=== PATIENT | female | born 1985 | race Caucasian/White ===

== ENCOUNTER 2017-04-11 21:53 | Emergency (ER) | payer OTHER ==
[2017-04-11 22:30] VITALS: BP 123/64; PULSE 75; RESP 20; TEMP 98.9
[2017-04-11] MEDS ORDERED: DIPH,PERTUS(ACELL)TETVAC-LF 0.5 ML VIAL IM ONE (22:36)
--- NOTE | 2017-04-11 22:38 | ED ---
Fall HPI - General Chief Complaint: Fall Stated Complaint: Fall/Knee Time Seen by Provider: 04/11/17 22:32 Source: patient, RN notes reviewed Mode of arrival: ambulatory Limitations: no limitations - History of Present Illness Initial Comments: This a 31-year-old female presents emergency Department chief complaint fall. Patient complains of laceration to her left knee, left knee pain and right foot pain. She states that she tripped and twisted her foot and fell on the concrete her left knee. She is unsure when her last tetanus was. Patient denies head injury no LOC. - Related Data Home Medications Medication Instructions Recorded Confirmed Kac-[id number]-[id number] Acid 1 cap PO DAILY 01/17/16 02/26/16 [-U Capsule] Ranitidine HCl [Zantac] 150 mg PO HS 02/26/16 02/26/16 Previous Rx's Medication Instructions Recorded Docusate [Colace] 100 mg PO BID #60 capsule 02/27/16 Ibuprofen [Motrin] 600 mg PO Q6HR PRN #30 tab 02/27/16 Cephalexin [Keflex] 500 mg PO Q6HR #28 cap 04/11/17 Allergies Allergy/AdvReac Type Severity Reaction Status Date / Time dandelion (Taraxacum Allergy Unknown Verified 04/11/17 22:30 officinale) [dandelion] ofloxacin Allergy Unknown Verified 04/11/17 22:30 Review of Systems ROS Statement: Those systems with pertinent positive or pertinent negative responses have been documented in the HPI. ROS Other: All systems not noted in ROS Statement are negative. Past Medical History Past Medical History: Asthma Additional Past Medical History / Comment(s): Obstetric history: three vaginal deliveries; she has had care with Dr Caicedo since 9 weeks gestation. Oneg,abs neg, Rub Imm, RPR NR, Hep B neg. Quad neg.normal 1hr GTT, GBS neg. History of Any Multi-Drug Resistant Organisms: None Reported Past Surgical History: No Surgical Hx Reported Past Anesthesia/Blood Transfusion Reactions: No Reported Reaction Past Psychological History: No Psychological Hx Reported Smoking Status: Never smoker Past Alcohol Use History: None Reported Past Drug Use History: None Reported - Past Family History Father Family Medical History: Hypertension General Exam Limitations: no limitations General appearance: alert, in no apparent distress Head exam: Present: atraumatic, normocephalic, normal inspection Neck exam: Present: normal inspection, full ROM. Absent: tenderness, meningismus, lymphadenopathy Respiratory exam: Present: normal lung sounds bilaterally. Absent: respiratory distress, wheezes, rales, rhonchi, stridor Cardiovascular Exam: Present: regular rate, normal rhythm, normal heart sounds. Absent: systolic murmur, diastolic murmur, rubs, gallop, clicks Extremities exam: Present: other (Right foot there is tenderness to lateral aspect of the fifth metatarsal, no obvious bruising, deformity. Neurovascular intact, left knee there is a 3 cm laceration over the patella there is no tendon involvement patient has full range of motion.) Back exam: Present: full ROM. Absent: tenderness Neurological exam: Present: alert, oriented X3, CN II-XII intact Skin exam: Present: warm, dry, intact, normal color. Absent: rash Course Vital Signs 04/11/17 22:28 Temperature 98.9 F Pulse Rate 75 Respiratory 20 Rate Blood Pressure 123/64 O2 Sat by Pulse 99 Oximetry Procedures - Laceration Laceration #1 Consent Obtained: verbal consent Indication: laceration Site: lower extremity (Left knee) Size (cm): 3 Description: irregular Depth: simple, single layer Anesthetic Used: lidocaine 1%, without epi Anesthesia Technique: local infiltration Amount (mls): 5 Pre-repair: wound explored, irrigated extensively, deep structures intact, wound margins revised Type of Sutures: nylon Size of Sutures: 4-0 Number of Sutures: 4 Technique: simple, interrupted Patient Tolerated Procedure: well, no complications Medical Decision Making - Medical Decision Making 31-year-old male present emergency from for fall laceration, foot injury knee injury. X-rays show no acute fracture. The laceration was closed. Patient will be placed on antibiotics as this is a semi-deep wound over a joint. Return parameters were discussed. Wound care was discussed Disposition Clinical Impression: Fall, Laceration of left knee, Contusion, knee, Foot sprain Disposition: HOME SELF-CARE Condition: Stable Instructions: Care For Your Stitches (ED), Laceration (ED), Foot Sprain (ED) Additional Instructions: Return in 10 days for suture removal.Please return to the Emergency Department if symptoms worsen or any other concerns. Prescriptions: Cephalexin [Keflex] 500 mg PO Q6HR #28 cap Referrals: Chacho Da Silva DO [Primary Care Provider] - 1-2 days Time of Disposition: 23:08
--- NOTE | 2017-04-11 22:57 | XR ---
EXAMINATION TYPE: XR foot complete RT DATE OF EXAM: 04/11/2017 COMPARISON: NONE HISTORY: Foot pain TECHNIQUE: 3 views FINDINGS: I see no fracture nor dislocation. Metatarsals are intact. Joint spaces are fairly normal. There are no erosions. IMPRESSION: Negative right foot exam
--- NOTE | 2017-04-11 22:59 | XR ---
EXAMINATION TYPE: XR knee complete LT DATE OF EXAM: 04/11/2017 COMPARISON: NONE HISTORY: Pain TECHNIQUE: 3 views FINDINGS: I see no fracture nor dislocation. Joint spaces are normal. There is no sign of any joint e ffusion. IMPRESSION: Negative left knee exam
[2017-04-11] MEDS ORDERED: CEPHALEXIN 500MG STARTER PACK 4 CAP BTL PO STA (23:05)
[2017-04-11] MEDS ORDERED: IBUPROFEN 600 MG TAB PO STA (23:05)
== END 2017-04-11 23:25 | disposition home or self-care (01) ==
LOC: EC 21:53
DX: S81.012A Laceration without foreign body, left knee, initial encounter (principal); S93.601A Unspecified sprain of right foot, initial encounter; Z79.899 Other long term (current) drug therapy; Z88.8 Allergy status to other drugs, medicaments and biological substances; Z23 Encounter for immunization; W01.0XXA Fall on same level from slipping, tripping and stumbling without subsequent striking against object, initial encounter
CPT/HCPCS: 12002; 90471; 90715; 99283

== ENCOUNTER 2019-07-15 15:39 | Emergency (ER) | payer OTHER ==
[2019-07-15] MEDS ORDERED: ACETAMINOPHEN TAB 500 MG TAB PO STA (16:14)
[2019-07-15] MEDS ORDERED: KETOROLAC 30 MG/ML 1 ML VIAL IVP STA (16:15)
[2019-07-15] MEDS ORDERED: SODIUM CHLORIDE 0.9% 1,000 ML IV SCH (16:15)
[2019-07-15] MEDS ORDERED: SODIUM CHLORIDE 0.9% 1,000 ML IV ONE (16:15)
[2019-07-15] MEDS ORDERED: ONDANSETRON 4 MG/2 ML VIAL IVP STA (16:15)
--- NOTE | 2019-07-15 16:40 | ED ---
URI HPI - General Chief Complaint: Upper Respiratory Infection Stated Complaint: ENT,Cough,Headache Time Seen by Provider: 07/15/19 15:50 Source: patient, RN notes reviewed, old records reviewed Mode of arrival: ambulatory Limitations: no limitations - History of Present Illness Initial Comments: Sisi is a 33-year-old female presents with cough fever or chills. She complains of nausea and vomiting and body aches for the past 5 days. Patient has not had recent Motrin Tylenol to stay. She remains of fever or chills at this time. Patient has had no history of sick contacts she is aware of. He reports that when she does cough she has a worsening headache. Patient states that she's not had her flu vaccine. - Related Data Home Medications Medication Instructions Recorded Confirmed DULoxetine HCL [Cymbalta] 60 mg PO HS 08/13/17 08/13/17 Previous Rx's Medication Instructions Recorded Acetaminophen with Codeine 1 tab PO Q4H #6 tab 08/13/17 [Tylenol w/codeine #3] Ondansetron Odt [Zofran Odt] 4 mg PO Q8HR PRN #12 tab 07/15/19 Allergies Allergy/AdvReac Type Severity Reaction Status Date / Time dandelion (Taraxacum Allergy Unknown Verified 08/13/17 19:32 officinale) [dandelion] ofloxacin Allergy Swelling Verified 08/13/17 19:32 Review of Systems ROS Statement: Those systems with pertinent positive or pertinent negative responses have been documented in the HPI. ROS Other: All systems not noted in ROS Statement are negative. Past Medical History Past Medical History: Asthma Additional Past Medical History / Comment(s): Obstetric history: three vaginal deliveries; she has had care with Dr Caicedo since 9 weeks gestation. Oneg,abs neg, Rub Imm, RPR NR, Hep B neg. Quad neg.normal 1hr GTT, GBS neg. History of Any Multi-Drug Resistant Organisms: None Reported Past Surgical History: No Surgical Hx Reported Past Anesthesia/Blood Transfusion Reactions: No Reported Reaction Past Psychological History: No Psychological Hx Reported Smoking Status: Never smoker Past Alcohol Use History: Rare Past Drug Use History: None Reported - Past Family History Father Family Medical History: Hypertension General Exam - General Exam Comments Initial Comments: 33-year-old female. Alert and oriented 3. Limitations: no limitations General appearance: alert, in no apparent distress Head exam: Present: atraumatic, normocephalic, normal inspection Eye exam: Present: normal appearance, PERRL, EOMI. Absent: scleral icterus, conjunctival injection, periorbital swelling ENT exam: Present: normal exam, mucous membranes moist Neck exam: Present: normal inspection. Absent: tenderness, meningismus, lymphadenopathy Respiratory exam: Present: normal lung sounds bilaterally. Absent: respiratory distress, wheezes, rales, rhonchi, stridor Cardiovascular Exam: Present: regular rate, normal rhythm, normal heart sounds. Absent: systolic murmur, diastolic murmur, rubs, gallop, clicks GI/Abdominal exam: Present: soft, normal bowel sounds. Absent: distended, tenderness, guarding, rebound, rigid Extremities exam: Present: normal inspection, full ROM, normal capillary refill. Absent: tenderness, pedal edema, joint swelling, calf tenderness Back exam: Present: normal inspection Neurological exam: Present: alert, oriented X3, CN II-XII intact Psychiatric exam: Present: normal affect, normal mood Skin exam: Present: warm, dry, intact, normal color. Absent: rash Course Vital Signs 07/15/19 15:47 Temperature 98.9 F Pulse Rate 101 H Respiratory 20 Rate Blood Pressure 107/77 O2 Sat by Pulse 99 Oximetry Medical Decision Making - Medical Decision Making 33-year-old female presents today for evaluation for concerns for cough congestion fever chills body aches. Symptoms for 5 days. She states she's been having some nausea vomiting. IV established. Blood work obtained. Unremarkable. Patient is positive for flu B. Patient was appears no distress and is resting comfortably bed after Zofran and Toradol. Discussed symptomatically treatment at this time and to monitor for a PCP follow up. - Lab Data Result diagrams: 07/15/19 16:25 07/15/19 16:25 Lab Results 07/15/19 07/15/19 07/15/19 Range/Units 15:55 16:25 16:25 WBC 5.8 (3.8-10.6) k/uL RBC 4.68 (3.80-5.40) m/uL Hgb 13.7 (11.4-16.0) gm/dL Hct 41.5 (34.0-46.0) % MCV 88.7 (80.0-100.0) fL MCH 29.2 (25.0-35.0) pg MCHC 33.0 (31.0-37.0) g/dL RDW 12.9 (11.5-15.5) % Plt Count 153 (150-450) k/uL Neutrophils % 75 % Lymphocytes % 18 % Monocytes % 5 % Eosinophils % 0 % Basophils % 0 % Neutrophils # 4.4 (1.3-7.7) k/uL Lymphocytes # 1.1 (1.0-4.8) k/uL Monocytes # 0.3 (0-1.0) k/uL Eosinophils # 0.0 (0-0.7) k/uL Basophils # 0.0 (0-0.2) k/uL Sodium 137 (137-145) mmol/L Potassium 3.4 L (3.5-5.1) mmol/L Chloride 100 (98-107) mmol/L Carbon Dioxide 28 (22-30) mmol/L Anion Gap 9 mmol/L BUN 8 (7-17) mg/dL Creatinine 0.64 (0.52-1.04) mg/dL Est GFR (CKD-EPI)AfAm >90 (>60 ml/min/1.73 sqM) Est GFR (CKD-EPI)NonAf >90 (>60 ml/min/1.73 sqM) Glucose 107 H (74-99) mg/dL Calcium 9.2 (8.4-10.2) mg/dL Influenza Type A RNA Not Detected (Not Detectd) Influenza Type B (PCR) Detected H (Not Detectd) Disposition Clinical Impression: Influenza B Disposition: HOME SELF-CARE Condition: Good Instructions (If sedation given, give patient instructions): Influenza (ED), Upper Respiratory Infection (ED) Additional Instructions: Today Motrin and Tylenol as discussed. Have close follow-up with your primary care physician. Return to emergency department if any alarming signs or symptoms occur. Prescriptions: Ondansetron Odt [Zofran Odt] 4 mg PO Q8HR PRN #12 tab PRN Reason: Nausea Is patient prescribed a controlled substance at d/c from ED?: No Referrals: Chacho Da Silva DO [Primary Care Provider] - 1-2 days Time of Disposition: 17:31
[2019-07-15 16:53] LABS: Basophils % (A) 0 %; Eosinophils % (A) 0 %; HCT 41.5 % (34.0-46.0); HGB 13.7 gm/dL (11.4-16.0); Lymphocytes # (A) 1.1 k/uL (1.0-4.8); Lymphocytes % (A) 18 %; MCH 29.2 pg (25.0-35.0); MCV 88.7 fL (80.0-100.0); Mean Platelet Volume 7.8; Monocytes # (A) 0.3 k/uL (0-1.0); Monocytes % (A) 5 %; Neutrophils # (A) 4.4 k/uL (1.3-7.7); Neutrophils % (A) 75 %; Platelet Count 153 k/uL (150-450); RBC 4.68 m/uL (3.80-5.40); RDW 12.9 % (11.5-15.5); WBC 5.8 k/uL (3.8-10.6)
[2019-07-15 16:59] LABS: African American GFR (CKD) >90 (>60 ml/min/1.73 sqM); Anion Gap 9 mmol/L; Blood Urea Nitrogen 8 mg/dL (7-17); Calcium 9.2 mg/dL (8.4-10.2); Carbon Dioxide 28 mmol/L (22-30); Chloride 100 mmol/L (98-107); Glucose 107 mg/dL (74-99); Non-African American GFR(CKD) >90 (>60 ml/min/1.73 sqM); Potassium 3.4 mmol/L (3.5-5.1); Sodium 137 mmol/L (137-145)
[2019-07-15 18:03] VITALS: BP 107/70; PULSE 93; RESP 18; TEMP 98.5
== END 2019-07-15 18:02 | disposition home or self-care (01) ==
LOC: EC 15:39
DX: J10.1 Influenza due to other identified influenza virus with other respiratory manifestations (principal); Z88.1 Allergy status to other antibiotic agents; Z91.048 Other nonmedicinal substance allergy status; Z79.899 Other long term (current) drug therapy
CPT/HCPCS: 36415; 80048; 85025; 87502; 99284; 96374; 96375; 96361; J2405; J1885

== ENCOUNTER 2022-12-08 05:30 | Observation (INO) | payer OTHER ==
--- NOTE | 2022-12-07 06:45 | P.HPOB ---
History of Present Illness H&P Date: 12/07/22 Chief Complaint: 14 week demise This patient is a pleasant 37-year-old 5 para 4 female estimated date of confinement 06/04/2023 estimated gestational age 14 weeks who presents to labor and delivery for Hemabate induction of labor secondary to demise. Agata child's history is such that she presented for care and 9 weeks. At that time she had a visible heartbeat. She re-presented at 13 weeks and at that time we were unable to find heart tones. Ultrasound showed a intrauterine demise with evidence of hydrops and possible ascites. Due to the gestational age have recommended laminaria placement and Hemabate induction of labor. Review of Systems Constitutional: Reports as per HPI Genitourinary: Reports as per HPI, Reports Menstruation: Reports amenorrhea Past Medical History Past Medical History: Asthma Additional Past Medical History / Comment(s): Patient's had 4 term vaginal deliveries History of Any Multi-Drug Resistant Organisms: None Reported Past Surgical History: No Surgical Hx Reported Past Anesthesia/Blood Transfusion Reactions: No Reported Reaction Past Psychological History: No Psychological Hx Reported Smoking Status: Never smoker Past Alcohol Use History: None Reported, Rare Past Drug Use History: None Reported - Past Family History Father Family Medical History: Hypertension Medications and Allergies Home Medications Medication Instructions Recorded Confirmed Type Acetaminophen with Codeine 1 tab PO Q4H #6 tab 08/13/17 Rx [Tylenol w/codeine #3] DULoxetine HCL [Cymbalta] 60 mg PO HS 08/13/17 08/13/17 History Ondansetron Odt [Zofran Odt] 4 mg PO Q8HR PRN #12 tab 07/15/19 Rx Allergies Allergy/AdvReac Type Severity Reaction Status Date / Time dandelion (Taraxacum Allergy Unknown Verified 08/13/17 19:32 officinale) [dandelion] ofloxacin Allergy Swelling Verified 08/13/17 19:32 Exam - OBG Physical Exam Abdomen: bowel sounds normal, no diffuse tenderness, no bruit present, no guarding noted, no hepatomegaly, no splenomegaly, no mass Vulva: both: normal Vagina: normal moisture, no discharge Cervix: no lesion, no discharge Uterus: enlarged, normal contour Results Ultrasound shows a nonviable measuring 12 weeks size with hydrops labs show she is O negative, rubella immune, RPR is nonreactive, HIV is nonreactive, hepatitis B and C negative Assessment and Plan Assessment: This is a pleasant 37-year-old 5 para 4 female estimated gestational age by dates 14 weeks with known demise. Plan is Hemabate induction of labor. I've had a long discussion with the patient about this process and the benefits and risks. She understands the risks of retained products requiring D&C and/or hemorrhage. All the patient's questions are answered and she wishes to proceed. (1) 14 weeks gestation of Status: Acute Code(s): Z3A.14 - 14 WEEKS GESTATION OF SNOMED Code(s): 40146631 (2) demise Status: Acute Code(s): VYI1887 - SNOMED Code(s): 224812172 (3) Rh negative status during Status: Acute Code(s): O26.899 - OTH RELATED CONDITIONS, UNSPECIFIED TRIMESTER; Z67.91 - UNSPECIFIED BLOOD TYPE, RH NEGATIVE SNOMED Code(s): 493357171
[2022-12-08] MEDS ORDERED: BUTORPHANOL 2 MG/ML 1 ML VIAL IV PRN (05:42)
[2022-12-08 05:49] VITALS: RESP 16
[2022-12-08] MEDS: CARBOPROST TROMETHAMINE 250 MCG/ML 1 ML AMP IM SCH ×7 (06:07→16:04)
[2022-12-08] MEDS: LACTATED RINGERS 1,000 ML IV SCH ×2 (06:10→11:57)
[2022-12-08] MEDS: ONDANSETRON 4 MG/2 ML VIAL IVP PRN ×2 (06:16→11:26)
[2022-12-08] MEDS: DIPHENOX-ATROP 2.5-0.025 MG 1 EACH TAB PO PRN ×2 (06:16→11:26)
[2022-12-08 06:33] LABS: Basophils % (A) 0 %; Eosinophils # (A) 0.2 k/uL (0-0.7); Eosinophils % (A) 3 %; HCT 33.5 % (34.0-46.0); HGB 11.2 gm/dL (11.4-16.0); Lymphocytes # (A) 1.6 k/uL (1.0-4.8); Lymphocytes % (A) 17 %; MCH 30.4 pg (25.0-35.0); MCHC 33.5 g/dL (31.0-37.0); MCV 90.7 fL (80.0-100.0); Mean Platelet Volume 7.2; Monocytes # (A) 0.5 k/uL (0-1.0); Monocytes % (A) 5 %; Neutrophils # (A) 6.7 k/uL (1.3-7.7); Neutrophils % (A) 74 %; Platelet Count 274 k/uL (150-450); RBC 3.69 m/uL (3.80-5.40); RDW 13.4 % (11.5-15.5); WBC 9.1 k/uL (3.8-10.6)
[2022-12-08] MEDS: ACETAMINOPHEN IV (For NPO) 1,000 MG in EMPTY BAG 1 BAG IVPB SCH ×2 (06:48→13:04)
[2022-12-08] MEDS: NALBUPHINE 10 MG/ML (10 ML MDV) IV PRN ×2 (10:33→14:08)
[2022-12-08] MEDS ORDERED: diphenhydrAMINE 50 MG/ML 1 ML VIAL IVP PRN (16:49)
[2022-12-08] MEDS ORDERED: BENZOCAINE/MENTHOL SPRAY 1 GM/SPRAY AEROSOL TOPICAL PRN (16:49)
[2022-12-08] MEDS ORDERED: diphenhydrAMINE 25 MG CAP PO PRN (16:49)
[2022-12-08] MEDS ORDERED: ACETAMINOPHEN TAB 325 MG TAB PO PRN (16:49)
[2022-12-08] MEDS ORDERED: HYDROCORTISONE 2.5% RECTAL CREAM 30 GM TUBE RECTAL PRN (16:49)
[2022-12-08] MEDS ORDERED: Rhogam IMMUNE GLOBULIN 1,500 UNIT/1 ML IM ONE (16:49)
[2022-12-08] MEDS ORDERED: SIMETHICONE 80 MG CHEWABLE PO PRN (16:49)
[2022-12-08] MEDS ORDERED: IBUPROFEN 600 MG TAB PO PRN (16:49)
[2022-12-08] MEDS ORDERED: LANOLIN CREAM 5 GM TUBE TOPICAL PRN (16:49)
--- NOTE | 2022-12-08 17:14 | P.PROBDLV ---
Vaginal Delivery Note - . Vaginal Delivery Note: Spontaneous delivery of a nonviable 12-13 week size . Please see dictated H&P on this patient's admission. In brief summary this is a pleasant 37-year-old 5 para 4 female who was found to have a 14 week by dates intrauterine demise. Patient had 2 laminaria placed in the office and presented this morning for Hemabate induction. Patient was given Hemabate every 2 hours started approximately 6 AM. She immediately had some cramping and bleeding. She required 2 doses of pain medications throughout the day. At 1625 hrs., she had some tissue protruding from the cervical os and she pushed gently and delivered the entire including the placenta and fetus/embryo. This appeared to be approximately 12-13 weeks' size. The fetus appeared to be degenerated. Grossly it did appear to be male. The placenta appeared to be intact. I did place a speculum into the vagina and further placental tissue is removed from the os and bleeding was minimal. No lacerations no repairs. Patiently watched in the room and doing well be discharged home later tonight.
--- NOTE | 2022-12-08 17:17 | P.DS ---
Providers Date of admission: 12/08/22 05:30 Expected date of discharge: 12/08/22 Attending physician: August Caicedo Primary care physician: August Caicedo - Discharge Diagnosis(es) (1) 14 weeks gestation of Current Visit: No Status: Acute (2) demise Current Visit: No Status: Acute (3) Rh negative status during Current Visit: No Status: Acute Hospital Course: Please see dictated H&P and delivery note on this patient's admission. Patient is admitted for Hemabate induction of a 14 week intrauterine demise. Patient was on to have a uncomplicated delivery and later in the days felt to be stable for discharge home follow up with me in 1 week. Procedures: Hemabate induction of labor and delivery of products of conception Patient Condition at Discharge: Good Plan - Discharge Summary New Discharge Prescriptions: New RX: Ibuprofen [Motrin] 600 mg PO Q6HR PRN #30 tab PRN Reason: Mild Pain (Scale 1 To 3) No Action DULoxetine HCL [Cymbalta] 60 mg PO HS Pregabalin [Lyrica] 300 mg PO DAILY Discharge Medication List DULoxetine HCL [Cymbalta] 60 mg PO HS 08/13/17 [History] Pregabalin [Lyrica] 300 mg PO DAILY 12/08/22 [History] RX: Ibuprofen [Motrin] 600 mg PO Q6HR PRN #30 tab 12/08/22 [Rx] Follow up Appointment(s)/Referral(s): August Caiecdo MD [Primary Care Provider] - 12/16/22 9:15 am Patient Instructions/Handouts: Miscarriage (GEN) Activity/Diet/Wound Care/Special Instructions: No intercourse or anything per vagina for 6 weeks. Please call if any fever, chills, excessive vaginal bleeding, and/or abdominal pain. Discharge Disposition: HOME SELF-CARE
[2022-12-08 18:24] LABS: Cardiolipin Ab IgG Interp NEGATIVE (NEGATIVE); Cardiolipin Ab IgM Interp NEGATIVE (NEGATIVE); Cardiolipin IgA Antibody <2.0 U/mL; Cardiolipin IgM Antibody <1.5 U/mL
[2022-12-08 18:37] VITALS: BP 99/58; PULSE 76; TEMP 97.5
[2022-12-08] MEDS ORDERED: SENNOSIDES-DOCUSATE SODIUM 1 EACH TAB PO SCH (20:00)
[2022-12-09 06:33] LABS: Herpes simplex IgG I Ab 0.09 (< or = 0.90); Herpes simplex IgG II Ab 0.05 (< or = 0.90); Toxoplasma Antibody (IgG) <3.0 IU/mL (<7.2)
[2022-12-09 07:16] LABS: Herpes simplex I and/or II IgM 0.37 INDEX (<=0.90); Toxoplasma Antibody (IgM) <3.0 AU/mL (<8.0)
[2022-12-09 12:59] LABS: APTT 41 Sec(s) (<43); Dilute Russell Viper Venom 35 Sec(s) (<44)
== END 2022-12-08 20:10 | disposition home or self-care (01) ==
LOC: INTOOBSV 05:30 → 4FBP 05:30 → UNDODISIN 20:10
PROVIDERS: ADMIT Obstetrics & Gynecology; ATTEND Obstetrics & Gynecology
DX: O02.1 Missed abortion (principal); J45.909 Unspecified asthma, uncomplicated; Z67.91 Unspecified blood type, Rh negative; Z88.1 Allergy status to other antibiotic agents; Z91.048 Other nonmedicinal substance allergy status; Z82.49 Family history of ischemic heart disease and other diseases of the circulatory system
CPT/HCPCS: 90384; 96376; 96361; 96365; 96372; 96375; 86900; 86901; 86762 ×2; 86778; 86645; 86644; 86777; 88305; 86696; 86694; 86695; 85025; 85730; 86850; 85613; 88300; 86147; G0378; G0379; J2790; J2300; J2405; J0131

== ENCOUNTER 2023-08-01 11:43 | Emergency (ER) | payer OTHER ==
[2023-08-01] MEDS ORDERED: oxyCODONE-APAP 5-325MG 1 EACH TAB PO STA (11:59)
[2023-08-01] MEDS ORDERED: CYCLOBENZAPRINE 5 MG TAB PO STA (11:59)
[2023-08-01] MEDS ORDERED: LIDOCAINE 4% PATCH TOPICAL ONE (12:00)
--- NOTE | 2023-08-01 12:00 | ED ---
Back Pain HPI - General Stated Complaint: Back Pain Time Seen by Provider: 08/01/23 11:54 Source: EMS Limitations: no limitations - History of Present Illness Initial Comments: The patient is a 38-year-old female with a history of of fibromyalgia who presents to the Ed with complaints of back pain that radiates down the left leg. the patient denies any falls or injuries. She denies any saddle anesthesia or loss of bowel bladder control. Patient denies any, IV drug use, hematuria urinary frequency or new concerning symptoms. Her LMP Was a month ago - Related Data Home Medications Medication Instructions Recorded Confirmed DULoxetine HCL [Cymbalta] 60 mg PO HS 08/13/17 02/10/23 Pregabalin [Lyrica] 300 mg PO DAILY 12/08/22 02/10/23 Allergies Allergy/AdvReac Type Severity Reaction Status Date / Time dandelion ([place] Allergy tunnel Verified 02/10/23 08:41 officinale) vision, [dandelion] vomiting. ofloxacin Allergy Swelling Verified 02/10/23 08:26 Review of Systems ROS Statement: Those systems with pertinent positive or pertinent negative responses have been documented in the HPI. ROS Other: All systems not noted in ROS Statement are negative. Past Medical History Past Medical History: Asthma, Fibromyalgia Additional Past Medical History / Comment(s): Patient's had 4 term vaginal deliveries, neuropathy hands and feet, carpal tunnel kay wrists History of Any Multi-Drug Resistant Organisms: None Reported Past Surgical History: No Surgical Hx Reported Past Anesthesia/Blood Transfusion Reactions: No Reported Reaction Additional Past Anesthesia/Blood Transfusion Reaction / Comment(s): no anesthesia hx. Past Psychological History: Anxiety Smoking Status: Never smoker - Past Family History Father Family Medical History: Hypertension Additional Family Medical History / Comment(s): cancer for grandparents Mother Family Medical History: COPD Additional Family Medical History / Comment(s): fibromyalgia General Exam Limitations: no limitations General appearance: alert, in no apparent distress Head exam: Present: atraumatic Eye exam: Present: normal appearance ENT exam: Present: normal exam Neck exam: Present: full ROM Respiratory exam: Present: normal lung sounds bilaterally Cardiovascular Exam: Present: regular rate, normal rhythm GI/Abdominal exam: Present: soft Back exam: Present: tenderness (Pain over mid lumbar spine and left SI joint without any rash or erythema. EHL intact bilaterally pain with left straight leg test.) Neurological exam: Present: alert, oriented X3, CN II-XII intact Psychiatric exam: Present: normal affect, normal mood Skin exam: Present: warm, dry Course Vital Signs 08/01/23 08/01/23 11:46 16:16 Temperature 97.9 F 98.2 F Pulse Rate 80 70 Respiratory 18 18 Rate Blood Pressure 113/69 107/71 O2 Sat by Pulse 100 100 Oximetry - Reevaluation(s) Reevaluation #1: Patient is resting comfortably in bed at this time. I discussed lab results and imaging results with patient. I discussed the positive test in the clot level at 370 today. The ultrasound is not showing intrauterine however patient is very early into the . She is to follow-up with Dr. Caicedo for serial hCG Quant and repeat ultrasound. We did discuss signs return to the emergency room including but not limited to any near-syncope, dizziness, severe pain, hemorrhaging any concerning symptoms. She understands she is able to take Tylenol for the back pain at this time. 08/01/23 16:15 Medical Decision Making - Medical Decision Making Was pt. sent in by a medical professional or institution (, [facility], HOSPICE HOME CARE COORDINATOR, urgent ca re, hospital, or correction...) When possible be specific @ -[No] Did you speak to anyone other than the patient for history (EMS, parent, family, police, friend...)? What history was obtained from this source @ -[No] Did you review nursing and triage notes (agree or disagree)? Why? @ -[I reviewed and agree with nursing and triage notes] Were old charts reviewed (outside hosp., previous admission, EMS record, old EKG, old radiological studies, urgent care reports/EKG's, correction records)? Report findings @ -[yes old charts were reviewed] Differential Diagnosis (chest pain, altered mental status, abdominal pain women, abdominal pain men, vaginal bleeding, weakness, fever, dyspnea, syncope, headache, dizziness, GI bleed, back pain, seizure, CVA, palpatations, mental health, musculoskeletal)? @ -Back pain, suspected sciatica, , threatened EKG interpreted by me (3pts min.). @ -[As above] X-rays interpreted by me (1pt min.). @ -[None done] CT interpreted by me (1pt min.). @ -[None done] U/S interpreted by me (1pt. min.). @ -Ultrasound shows no intrauterine however patient last menstrual period was one month ago and hCG Quant is 370. Likely will need a repeat ultrasound 1-2 weeks. What testing was considered but not performed or refused? (CT, X-rays, U/S, labs)? Why? @ -[None] What meds were considered but not given or refused? Why? @ -[None] Did you discuss the management of the patient with other professionals (professionals i.e. , PA, HOSPICE HOME CARE COORDINATOR, lab, RT, psych nurse, medical social consultant, security agent, teacher, co founder and chief strategy officer, returned case inspector)? Give summary @ -[No] Was smoking cessation discussed for >3mins.? @ -[No] Was critical care preformed (if so, how long)? @ -[No] Were there social determinants of health that impacted care today? How? (Homelessness, low income, unemployed, alcoholism, drug addiction, transportat ion, low edu. Level, literacy, decrease access to med. care, nursing home, rehab)? @ -[No] Was there de-escalation of care discussed even if they declined (Discuss DNR or withdrawal of care, Hospice)? DNR status @ -[No] What co-morbidities impacted this encounter? (DM, HTN, Smoking, COPD, CAD, Cancer, CVA, ARF, Chemo, Hep., AIDS, mental health diagnosis, sleep apnea, morbid obesity)? @ -[None] Was patient admitted / discharged? Hospital course, mention meds given and route, prescriptions, significant lab abnormalities, going to OR and other pertinent info. @ Patient is stable to follow up as an outpatient at this time. I discussed management of the back pain is suspected sciatica including heat stretching and Tylenol only. Patient will follow up with her OB for serial hCG and repeat ultrasound. We discussed signs return to the emergency room including but not limited to any severe pain, near syncope, dizziness, hemorrhages or new concerning symptoms. Undiagnosed new problem with uncertain prognosis? @ -[No] Drug Therapy requiring intensive monitoring for toxicity (Heparin, Nitro, Insulin, Cardizem)? @ -[No] Were any procedures done? @ -[No] Diagnosis/symptom? @ -Back pain, suspected sciatica, new Diagnosis, threatened Acute, or Chronic, or Acute on Chronic? @ -ACute Uncomplicated (without systemic symptoms) or Complicated (systemic symptoms)? @ -[default] Side effects of treatment? @ -[No] Exacerbation, Progression, or Severe Exacerbation? @ -[No] Poses a threat to life or bodily function? How? (Chest pain, [place], [place], pneumonia, PE, COPD, DKA, ARF, appy, cholecystitis, CVA, Diverticulitis, Homicidal, [place], threat to staff... and all critical care pts) @ -[No] - Lab Data Result diagrams: 08/01/23 15:07 08/01/23 13:21 Lab Results 08/01/23 08/01/23 08/01/23 Range/Units 12:31 12:31 13:21 WBC (3.8-10.6) k/uL RBC (3.80-5.40) m/uL Hgb (11.4-16.0) gm/dL Hct (34.0-46.0) % MCV (80.0-100.0) fL MCH (25.0-35.0) pg MCHC (31.0-37.0) g/dL RDW (11.5-15.5) % Plt Count (150-450) k/uL MPV Neutrophils % % Lymphocytes % % Monocytes % % Eosinophils % % Basophils % % Neutrophils # (1.3-7.7) k/uL Lymphocytes # (1.0-4.8) k/uL Monocytes # (0-1.0) k/uL Eosinophils # (0-0.7) k/uL Basophils # (0-0.2) k/uL Sodium 139 (137-145) mmol/L Potassium 4.0 (3.5-5.1) mmol/L Chloride 112 H (98-107) mmol/L Carbon Dioxide 21 L (22-30) mmol/L Anion Gap 6 mmol/L BUN 9 (7-17) mg/dL Creatinine 0.54 (0.52-1.04) mg/dL Est GFR (CKD-EPI)AfAm >90 (>60 ml/min/1.73 sqM) Est GFR (CKD-EPI)NonAf >90 (>60 ml/min/1.73 sqM) Glucose 99 (74-99) mg/dL Calcium 8.9 (8.4-10.2) mg/dL Total Bilirubin 0.7 (0.2-1.3) mg/dL AST 33 (14-36) U/L ALT 14 (4-34) U/L Alkaline Phosphatase 76 (38-126) U/L Total Protein 6.5 (6.3-8.2) g/dL Albumin 3.8 (3.5-5.0) g/dL HCG, Quant 371.0 mIU/mL Urine Color Colorless Urine Appearance Clear (Clear) Urine pH 5.5 (5.0-8.0) Ur Specific [place] 1.002 (1.001-1.035) Urine Protein Negative (Negative) Urine Glucose (UA) Negative (Negative) Urine Ketones Negative (Negative) Urine Blood Negative (Negative) Urine Nitrite Negative (Negative) Urine Bilirubin Negative (Negative) Urine Urobilinogen <2.0 (<2.0) mg/dL Ur Leukocyte Esterase Negative (Negative) Urine HCG, Qual Detected (Not Detectd) 08/01/23 Range/Units 15:07 WBC 6.3 (3.8-10.6) k/uL RBC 3.76 L (3.80-5.40) m/uL Hgb 11.4 (11.4-16.0) gm/dL Hct 34.0 (34.0-46.0) % MCV 90.3 (80.0-100.0) fL MCH 30.2 (25.0-35.0) pg MCHC 33.5 (31.0-37.0) g/dL RDW 13.9 (11.5-15.5) % Plt Count 310 (150-450) k/uL MPV 7.3 Neutrophils % 57 % Lymphocytes % 31 % Monocytes % 5 % Eosinophils % 5 % Basophils % 1 % Neutrophils # 3.6 (1.3-7.7) k/uL Lymphocytes # 2.0 (1.0-4.8) k/uL Monocytes # 0.3 (0-1.0) k/uL Eosinophils # 0.3 (0-0.7) k/uL Basophils # 0.0 (0-0.2) k/uL Sodium (137-145) mmol/L Potassium (3.5-5.1) mmol/L Chloride (98-107) mmol/L Carbon Dioxide (22-30) mmol/L Anion Gap mmol/L BUN (7-17) mg/dL Creatinine (0.52-1.04) mg/dL Est GFR (CKD-EPI)AfAm (>60 ml/min/1.73 sqM) Est GFR (CKD-EPI)NonAf (>60 ml/min/1.73 sqM) Glucose (74-99) mg/dL Calcium (8.4-10.2) mg/dL Total Bilirubin (0.2-1.3) mg/dL AST (14-36) U/L ALT (4-34) U/L Alkaline Phosphatase (38-126) U/L Total Protein (6.3-8.2) g/dL Albumin (3.5-5.0) g/dL HCG, Quant mIU/mL Urine Color Urine Appearance (Clear) Urine pH (5.0-8.0) Ur Specific [place] (1.001-1.035) Urine Protein (Negative) Urine Glucose (UA) (Negative) Urine Ketones (Negative) Urine Blood (Negative) Urine Nitrite (Negative) Urine Bilirubin (Negative) Urine Urobilinogen (<2.0) mg/dL Ur Leukocyte Esterase (Negative) Urine HCG, Qual (Not Detectd) - Radiology Data Radiology results: report reviewed, image reviewed Disposition Clinical Impression: Back pain, Sciatica, , Threatened Disposition: HOME SELF-CARE Condition: Good Instructions (If sedation given, give patient instructions): Threatened Miscarriage (ED), (ED), Acute Low Back Pain (ED) Additional Instructions: HCQ QUANT Today 370 Is patient prescribed a controlled substance at d/c from ED?: No When asked, does pt state using other controlled substances?: No If prescribed controlled substance>3 days was MAPS reviewed?: No Referrals: Lisa Oswald DO [Primary Care Provider] - 1-2 days August Caicedo MD [STAFF PHYSICIAN] - 1-2 days Time of Disposition: 16:19
[2023-08-01 12:12] VITALS: RESP 18
[2023-08-01 12:43] LABS: Appearance,Urine Clear (Clear); Bilirubin,Urine Negative (Negative); Blood,Urine Negative (Negative); Color,Urine Colorless; Glucose,Urine (UA) Negative (Negative); Ketones,Urine Negative (Negative); Leukocyte Esterase,Urine Negative (Negative); Nitrite,Urine Negative (Negative); PH, Urine 5.5 (5.0-8.0); Protein,Urine Negative (Negative); Specific Gravity,Urine 1.002 (1.001-1.035); Urobilinogen,Urine <2.0 mg/dL (<2.0)
[2023-08-01 14:03] LABS: ALT 14 U/L (4-34); AST 33 U/L (14-36); African American GFR (CKD) >90 (>60 ml/min/1.73 sqM); Albumin 3.8 g/dL (3.5-5.0); Alkaline Phosphatase 76 U/L (38-126); Anion Gap 6 mmol/L; Blood Urea Nitrogen 9 mg/dL (7-17); Calcium 8.9 mg/dL (8.4-10.2); Carbon Dioxide 21 mmol/L (22-30); Chloride 112 mmol/L (98-107); Glucose 99 mg/dL (74-99); Non-African American GFR(CKD) >90 (>60 ml/min/1.73 sqM); Sodium 139 mmol/L (137-145); Total Bilirubin 0.7 mg/dL (0.2-1.3); Total Protein 6.5 g/dL (6.3-8.2)
--- NOTE | 2023-08-01 15:19 | US ---
EXAMINATION TYPE: Ultrasound OB <= 14 week fetus DATE OF EXAM: 08/01/2023 2:58 PM COMPARISON: NONE CLINICAL INDICATION: Female, 38 years old with history of back pain, ; EXAM PERFORMED: Transabdominal (TA) EXAM MEASUREMENTS: GESTATIONAL AGE / DATING Physician Established: Not yet established Dates by LMP: (4 weeks/3 days) EDC: 04/06/2024 Dates by First Scan: No previous this is first scan Dates by Current Scan for: No IUP seen at this time MATERNAL ANATOMY Uterus: 8.6 x 3.9 x 6.5cm, retroverted Right Ovary: 2.5 x 1.4 x 1.9cm Left Ovary: 3.2 x 2.4 x 2.4cm Post CDS / Adnexa: small amount of free fluid in posterior cul de sac Presence of free fluid: yes Presence of corpus luteal cyst: left ovary - 1.8 x 1.8 x 1.7cm Presence of subchorionic bleed: wnl GESTATION / SURVEY IUP: No IUP seen at this time Date of LMP: 07/01/2023 Beta HcG (if available): Not available at time of exam IMPRESSION: 1. No visualized intrauterine . Differential considerations include nonvisualized ectopic pr egnancy, failed , and too early to visualize intrauterine . Recommend serial beta h CG and ultrasound follow-up to ensure the appearance of a viable intrauterine . 2. A 1.8 cm corpus luteum of the left ovary. 3. Small amount of cul-de-sac free fluid likely physiologic.
[2023-08-01 15:25] LABS: Basophils % (A) 1 %; Eosinophils # (A) 0.3 k/uL (0-0.7); Eosinophils % (A) 5 %; HGB 11.4 gm/dL (11.4-16.0); Lymphocytes % (A) 31 %; MCH 30.2 pg (25.0-35.0); MCHC 33.5 g/dL (31.0-37.0); MCV 90.3 fL (80.0-100.0); Mean Platelet Volume 7.3; Monocytes # (A) 0.3 k/uL (0-1.0); Monocytes % (A) 5 %; Neutrophils # (A) 3.6 k/uL (1.3-7.7); Neutrophils % (A) 57 %; Platelet Count 310 k/uL (150-450); RBC 3.76 m/uL (3.80-5.40); RDW 13.9 % (11.5-15.5); WBC 6.3 k/uL (3.8-10.6)
[2023-08-01 16:21] VITALS: BP 107/71; PULSE 70; TEMP 98.2
== END 2023-08-01 16:48 | disposition home or self-care (01) ==
LOC: EC 11:43
DX: O26.899 Other specified pregnancy related conditions, unspecified trimester (principal); M54.30 Sciatica, unspecified side; O20.0 Threatened abortion; O99.519 Diseases of the respiratory system complicating pregnancy, unspecified trimester; J45.909 Unspecified asthma, uncomplicated; Z86.59 Personal history of other mental and behavioral disorders; Z88.8 Allergy status to other drugs, medicaments and biological substances; Z3A.00 Weeks of gestation of pregnancy not specified
CPT/HCPCS: 36415; 76801; 80053; 81003; 81025; 84702; 85025; 99284